=== PATIENT | female | born 1945 | race Caucasian/White ===

== ENCOUNTER → 2018-06-05 02:26 | Outpatient (CLI) | payer MEDICARE, OTHER, SELFPAY ==
[2018-06-05 13:58] LABS: Hemoglobin A1C 6.8 % (4.5-6.2)
== END ==
PROVIDERS: PCP Family Medicine; Visit Provider Family Medicine
DX: E11.9 Type 2 diabetes mellitus without complications (principal)
CPT/HCPCS: 36415; 83036

== ENCOUNTER → 2018-06-19 01:36 | Outpatient (CLI) | payer MEDICARE, OTHER, SELFPAY ==
--- NOTE | 2018-06-19 11:44 | DI.REPORT_ITS ---
SYMPTOM/DIAGNOSIS: SCREENING, BREAST CANCER SCREENING, Z12.31 BILATERAL SCREENING MAMMOGRAMS: Mammograms were interpreted according to the usual protocol including computer analysis with CAD system, tomosynthesis and C view imaging. Comparison is made with exams from 2011 through 2016. The breasts are composed of scattered fibroglandular densities. There are no suspicious masses or suspicious microcalcifications. There has been no significant change. IMPRESSION: Category 1-B, negative mammogram. Routine screening is recommended. [facility] ASSESSMENT OF FINDINGS: Negative. Category 1. Patient will receive a letter notifying them of these results. BI-RADS category B. There are scattered areas of fibroglandular density.
== END ==
PROVIDERS: PCP Family Medicine; Visit Provider Family Medicine
DX: Z12.31 Encounter for screening mammogram for malignant neoplasm of breast (principal)
CPT/HCPCS: 77063; 77067

== ENCOUNTER 2018-10-09 02:22 | Outpatient (CLI) | payer MEDICARE, SELFPAY ==
[2018-10-09 12:10] LABS: Hemoglobin A1C 6.9 % (4.5-6.2)
== END 2018-10-09 02:42 ==
PROVIDERS: PCP Family Medicine; Visit Provider Family Medicine
DX: E11.9 Type 2 diabetes mellitus without complications (principal)
CPT/HCPCS: 36415; 83036

== ENCOUNTER 2019-01-12 09:36 | Outpatient (CLI) | payer MEDICARE, OTHER, SELFPAY ==
[2019-01-12 10:33] LABS: Hemoglobin A1C 7.1 % (4.5-6.2)
== END 2019-01-12 09:56 ==
PROVIDERS: PCP Family Medicine; Visit Provider Family Medicine
DX: E11.9 Type 2 diabetes mellitus without complications (principal)
CPT/HCPCS: 36415; 83036

== ENCOUNTER 2019-04-15 02:12 | Outpatient (CLI) | payer MEDICARE, OTHER, SELFPAY ==
[2019-04-15 10:33] LABS: Potassium 4.4 mmol/L (3.5-5.1)
[2019-04-15 11:39] LABS: Hemoglobin A1C 7.1 % (4.5-6.2)
== END 2019-04-15 02:32 ==
PROVIDERS: PCP Family Medicine; Visit Provider Family Medicine
DX: E11.9 Type 2 diabetes mellitus without complications (principal); I10 Essential (primary) hypertension
CPT/HCPCS: 36415; 82565; 83036; 84132

== ENCOUNTER 2019-08-07 13:57 | Outpatient (CLI) | payer MEDICARE, SELFPAY ==
--- NOTE | 2019-08-07 14:06 | DI.RAD_ITS ---
EXAM: XR LUMBAR SPINE COMPLETE INDICATION: back paiN,M54.9. COMPARISON: No exams were available for comparison TECHNIQUE: 2D digital imaging was performed. FINDINGS: Gallstones are noted. There is a moderate levoscoliosis. There has been previous laminectomy at L 3 and L 4. No compression fractures are seen. There is severe narrowing of the L2-3, L4-5 and L5-S1 disc spaces. Mild to moderate narrowing is seen of the disc spaces of the remaining levels. There i s calcification in the aorta. Degenerative changes are also seen involving the SI joints. IMPRESSION: Postsurgical and degenerative changes. Gallstones.
--- NOTE | 2019-08-07 14:12 | DI.RAD_ITS ---
EXAM: XR CERVICAL SPINE COMP 4-5V INDICATION: neckpain,CERVICAL MYELOPATHY,G95.9. COMPARISON: No exams were available for comparison TECHNIQUE: 2D digital imaging was performed. FINDINGS: There is narrowing of the C4-5 through C6-7 disc spaces with endplate osteophyte formation. There are also facet degenerative changes. The degenerative changes combine to produce neural foraminal narro wing on the left at C 3-4 through C 6. Carotid artery calcifications are incidentally noted. IMPRESSION: Degenerative changes causing left neural foraminal narrowing.
--- NOTE | 2019-08-07 14:20 | DI.RAD_ITS ---
EXAM: XR KNEE LT 3V AP,LAT,[place] INDICATION: knee pain devan.M25.561,M25.562. COMPARISON: None TECHNIQUE: 2D digital imaging was performed. FINDINGS: The bones appear osteoporotic. The joint spaces are well maintained. There is mild spurring at the articular aspect of the patella as well as quadriceps insertion on the patella. Chondrocalcinosis i s seen. IMPRESSION: Osteoporosis and mild degenerative changes. Vascular calcifications are present.
--- NOTE | 2019-08-07 14:30 | DI.RAD_ITS ---
EXAM: XR KNEE RT 3V AP,LAT,DLALAS INDICATION: knee pain. COMPARISON: XR KNEE LT 3V AP,LAT,[place] from 08/07/2019 TECHNIQUE: 2D digital imaging was performed. FINDINGS: The bones appear osteoporotic. The joint spaces are well maintained. There is mild spurring at the a rticular margin. Chondrocalcinosis is seen. Vascular calcifications are present. IMPRESSION: Osteoporosis and mild changes.
--- NOTE | 2019-08-07 14:35 | DI.RAD_ITS ---
EXAM: XR HIP PELVIS ADULT BL INDICATION: HIP AND BACK PAIN, M25.552. COMPARISON: RT HIP COMPLETE AP PELVIS from 03/26/2017 TECHNIQUE: 2D digital imaging was performed. FINDINGS: When compared with the previous examination of 03/26/2017, progressive degenerative changes involving the left hip are demonstrated. There is articular sclerosis and subchondral cyst formation, the find ings consistent with AVM. Mild degenerative changes involving the right hip are identified.
== END 2019-08-07 14:17 ==
PROVIDERS: PCP Family Medicine; Visit Provider Family Medicine
DX: M54.5 Low back pain; M51.37 Other intervertebral disc degeneration, lumbosacral region; M53.3 Sacrococcygeal disorders, not elsewhere classified; M25.561 Pain in right knee; M25.562 Pain in left knee; M17.0 Bilateral primary osteoarthritis of knee; M54.2 Cervicalgia; M50.322 Other cervical disc degeneration at C5-C6 level; M99.51 Intervertebral disc stenosis of neural canal of cervical region; M81.0 Age-related osteoporosis without current pathological fracture; M25.551 Pain in right hip; M25.552 Pain in left hip; M16.0 Bilateral primary osteoarthritis of hip
CPT/HCPCS: 73521; 73562; 72050; 72110

== ENCOUNTER 2019-08-16 04:29 | Emergency (ER) | payer MEDICARE, SELFPAY ==
[2019-08-16] VITALS (23 sets, daily range): BP systolic 86–171; BP diastolic 42–72; PULSE 75–93; RESP 16–18; TEMP 36.7; O2SAT 84–99
--- NOTE | 2019-08-16 04:37 | ED.GENADUL_ITS ---
Discharge Plan Disposition Patient Disposition: HOME Condition: Stable Discharge Details Chief Complaint: Orthopedic Clinical Impression: Leg pain Primary Care Provider: Juan Perry ED Provider: Teddy Lira Home Meds and New Rx's Prescriptions: New nitrofurantoin monohyd/m-cryst [Macrobid] 100 mg capsule 100 mg PO BID Qty: 10 RF: 0 Continued hydrochlorothiazide 12.5 mg tablet 12.5 mg PO DAILY RF: 0 benazepril 20 mg tablet 20 mg PO DAILY Qty: 90 RF: 4 metformin [Glucophage] 500 mg tablet 500 mg PO BID Qty: 180 RF: 4 (DME) lancets [OneTouch Delica Lancets] 1 EACH misc 1 ea Intradermal DIRECTED Qty: 300 RF: 4 Travatan Z 2.5 ML drops 1 drp Ophthalmic DAILY RF: 0 (DME) pen needle, diabetic [BD Ultra-Fine Silvia Pen Needle] 32 gauge x 5/32 needle 1 ea Miscellaneous DAILY Qty: 100 RF: 4 (DME) OneTouch Ultra Test strip 1 ea Miscellaneous BID Qty: 180 RF: 4 Lantus Solostar U-100 Insulin 100 unit/mL (3 mL) insulin pen 9 - 14 unit subcut HS Qty: 1 RF: 11 meloxicam 15 mg tablet 15 mg PO DAILY Qty: 10 RF: 0 acetaminophen [Mapap Extra Strength] 500 MG tablet 500 mg PO bid prn RF: 0 Discharge Instructions Additional Instructions: follow up with your primary care provider as scheduled take the medicines for pain that you are prescribed if you have high fevers, difficulty breathing or persistent vomit or feel more ill return to the emergency department Discharge Data Discharge Date/Time-TO BE ENTERED AT DEPARTURE: 08/16/19 10:57 Medical Decision Making <Mark Chawla MD - Last Filed: 08/16/19 19:58> Patient with worsening of chronic pain. Her description of the pain distribution as well as sharp lancinating pain worse with movement is highly suggestive of an L2 radiculopathy. She appears to be neurologically intact and is limited only due to pain. There is no bladder or bowel symptoms. She has had LS-spine, hips, knee x-rays. I have reviewed the reports. These show significant degenerative change but no fractures. No repeat imaging tonight as there is no no trauma or falls. Has appointment to see orthopedics next week. Will attempt pain management with Lidoderm and gabapentin. May need short course of [place] to get through the weekend to see Ortho next week. 07:00 - Patient continues to complain of pain and is now complaining of pain in the same distribution even without movement. She has had Vicodin in addition to the lidoderm and gabapentin. She is afraid to go home. I have made it clear to her that her expectation of having no pain would be unreasonable. She just wants to be comfortable to be able to sleep. I still do not believe further x- rays are warranted. Probably needs an MRI at some point to evaluate the lumbar spine. She does not have evidence of cauda equina requiring emergent MRI. Laboratory studies will not add anything to her evaluation. I will have case management and physical therapy see to try to come up with a disposition plan. Medical Records Medical records reviewed: Yes I reviewed the patient's medical records. <Teddy Lira MD - Last Filed: 08/16/19 09:49> CM and Pt saw patient and she feels comfortable going home. with home PT and OT as she has hx of falls and is homebound and uses a walker. She did have some nitrites on her urine so start antibiotics for this. Return precautions given HPI <Makr Chawla MD - Last Filed: 08/16/19 19:58> General Mode of arrival: EMS . Date/Time Provider Initiated Documentation: 08/16/19 04:32 . Limitations to Documentation: no limitations . Information obtained by: patient, RN notes reviewed and old records reviewed . HPI Narrative: Patient presents to ED by ambulance for evaluation of increasing left leg pain. Patient has been having increasing pain and difficulty ambulating for weeks. She has been seen by primary care and referred to orthopedics. She had imaging of spine, hips and knees done last week. There has been no new fall or trauma since those images were done. She describes pain radiating around from the back across the lateral hip into the anterior thigh down to the medial knee. She has heaviness distally in both legs from the knee down and this has been chronic and attributed to diabetic neuropathy. She has had back and cervical spine surgery. Bending over or flexing at the hip makes the pain worse. She has difficulty ambulating because of pain. She takes a gram of Tylenol every 6 hours, has been tried on steroids, currently on meloxicam. Ambulates with a walker but this morning because of the pain has been afraid to ambulate for fear of falling. There is no rash. There is no bladder or bowel incontinence. There is no new numbness or change in sensation other than the chronic changes bilaterally knees down. Related Data Home Medications Medication Instructions Recorded Confirmed lancets [OneTouch Delica Lancets] #300 ea 04/11/13 08/07/19 Travatan Z 1 drp OPHTHALMIC DAILY drp 03/31/15 08/16/19 acetaminophen [Mapap Extra 500 mg PO bid prn 03/26/17 08/16/19 Strength] pen needle, diabetic 32 gauge x #100 each 10/09/18 08/07/19 benazepril 20 mg tablet 20 mg PO DAILY #90 tab-cap 10/18/18 08/16/19 metformin 500 mg tablet 500 mg PO BID #180 tab-cap 10/18/18 08/16/19 blood sugar diagnostic #180 strip 12/15/18 08/07/19 insulin glargine 100 unit/mL (3 9 - 14 unit SUBCUT HS #1 ml 12/26/18 08/16/19 mL) subcutaneous pen hydrochlorothiazide 12.5 mg tablet 12.5 mg PO DAILY tab-cap 07/18/19 08/16/19 meloxicam 15 mg tablet 15 mg PO DAILY #10 tab 08/08/19 08/16/19 nitrofurantoin monohyd/m-cryst 100 mg PO BID #10 cap 08/16/19 [Macrobid] Previous Rx's Medication Instructions Recorded pen needle, diabetic 32 gauge x #100 each 10/09/18 benazepril 20 mg tablet 20 mg PO DAILY #90 tab-cap 10/18/18 metformin 500 mg tablet 500 mg PO BID #180 tab-cap 10/18/18 blood sugar diagnostic #180 strip 12/15/18 insulin glargine 100 unit/mL (3 9 - 14 unit SUBCUT HS #1 ml 12/26/18 mL) subcutaneous pen meloxicam 15 mg tablet 15 mg PO DAILY #10 tab 08/08/19 nitrofurantoin monohyd/m-cryst 100 mg PO BID #10 cap 08/16/19 [Macrobid] Allergies Allergy/AdvReac Type Severity Reaction Status Date / Time Tetanus Vaccines and Toxoid Allergy Severe RED Unverified 08/16/19 04:27 SWOLLEN FINGERS indomethacin AdvReac Severe INTOLERANT Unverified 08/16/19 04:27 Penicillins AdvReac Intermediate Skin Rash Unverified 08/16/19 09:36 amlodipine AdvReac Mild Dizziness/L Unverified 08/16/19 04:27 ightheade atorvastatin AdvReac Unknown MYALGIAS Unverified 08/16/19 04:27 General Stated Complaint: Orthopedic JAMIE: 3 Review of Systems <Mark Chawla MD - Last Filed: 08/16/19 19:58> Review of Systems Narrative: As documented in HPI otherwise negative as below. Const: no fever, chills, weakness Resp: no cough, SOB, pleuritic pain CV: no CP, diaphoresis, edema, syncope GI: no abdominal pain, nausea, vomiting, diarrhea Neuro: no headache, focal weakness, confusion PFSH <Mark Chawla MD - Last Filed: 08/16/19 19:58> Medical History Diabetes mellitus (Chronic 09/18/12) stable sugars Glaucoma (Chronic) OPTICAL EXPRESSIONS; 03/26/15 Hyperlipidemia (Chronic 09/18/12) intol to statin Hypertension (Chronic) stable Surgical History Biopsy of breast RIGHT Extraction of cataract 07/31/15; RIGHT EYE; DR. RIOS; 08/21/15 LEFT EYE; DR. RIOS Ligation of fallopian tube (~1975) Open Carpal Tunnel release 2004 S/P laminectomy (Chronic 09/14/16) C3-C7 Dr. Regalado 07/2016 L2-L5 Dr. Regalado 01/25/17 Family History Mother Personal history of malignant neoplasm liver Father , TRACTOR ACCIDENT at age 70. No problems noted. Sister Essential hypertension Diabetes Grandfather Personal history of malignant neoplasm Grandfather No problems noted. Grandmother Stroke Grandmother No problems noted. Social History Smoking/Tobacco Use Status: Never Alcohol Intake: never Drug use: Never Substance use type: does not use Household members: spouse current occupation: HOMEMAKER Duration: < 15 minutes/day Frequency: 5-6 times per week Do you feel safe at home: Yes Do you feel safe in your relationship?: Yes Exam <Mark Chawla MD - Last Filed: 08/16/19 19:58> Narrative Exam Narrative: Vitals: Afebrile. Hypertensive. Vitals otherwise normal. Const: Elderly female in NAD. HEENT: NC/AT. Normal facial exam. Poor dentition. Lungs: Normal respiratory effort. GI: Soft. NT/ND. No guarding or rebound. Back: Decreased ROM lumbar area. Neuro: A+O x 3. CN grossly in tact. Strength appears to be 5/5 but limited left proximal because of pain. Sensory in tact. Ext: No C/C/E. Limited ROM at hip due to pain. Skin: Warm and dry without rash. Course <Mark Chawla MD - Last Filed: 08/16/19 19:58> Vital Signs Vital signs: Vital Signs Temperature 98.1 F 08/16/19 04:20 Pulse 93 H 08/16/19 04:20 Respiratory Rate 16 08/16/19 04:20 Blood Pressure 171/72 H 08/16/19 04:20 Pulse Oximetry 99 08/16/19 04:20 Temperature 98.1 F 08/16/19 04:20 Temperature Source Skin 08/16/19 04:20 Pulse 93 H 08/16/19 04:20 Respiratory Rate 16 08/16/19 04:20 Respiratory Effort 08/16/19 04:27 Blood Pressure 171/72 H 08/16/19 04:20 Blood Pressure Position Supine 08/16/19 04:20 Pulse Oximetry 99 08/16/19 04:20 Oxygen Delivery Method Room Air 08/16/19 04:20 Oxygen Flow Rate 0 08/16/19 04:20 Pain Level 0 08/16/19 04:27 Sign Out <Mark Chawla MD - Last Filed: 08/16/19 19:58> Sign Out Data: Sign Out Comment: Pending PT and case management evaluation. Signed out to Dr. Lira. Last updated by Mark Chawla MD at 08/16/19 08:02
[2019-08-16] MEDS: Lidocaine 5% Patch 1 PATCH TP (05:01)
[2019-08-16] MEDS: Gabapentin 300 MG CAP PO (05:02)
[2019-08-16] MEDS: HYDROcodone 5/Acetaminophen 325 TAB PO (05:57)
--- NOTE | 2019-08-16 06:29 | NUR.NOTE ---
Nursing Note:Pt requesting to see this nurse, upon entering the room pt is crying and states that her left leg is throbbing from the knee up to her hip, states that the pain is a 7/10 at rest. Physician notified.
--- NOTE | 2019-08-16 08:47 | NUR.NOTE ---
Nursing Note: pt at bedside to ambulate pt.
--- NOTE | 2019-08-16 08:54 | NUR.NOTE ---
Nursing Note: pt has orthostatic hypotention and is dizzy and nauseated when standing. unable to tolerate PT challenge. pts ideal situation is that she wants to go home. pt has a walker and bedside commode at home.
--- NOTE | 2019-08-16 08:55 | NUR.NOTE ---
Nursing Note: offered pt breakfast but declines. pt drinking a glass of milk.
--- NOTE | 2019-08-16 08:59 | NUR.NOTE ---
Nursing Note: foul odorous urine and cloudy. md notified and urine sample sent to lab.
--- NOTE | 2019-08-16 09:01 | NUR.NOTE ---
Nursing Note: pt able to transfer from commode back to stretcher with minimal assistance and able to get her legs back into bed independently.
[2019-08-16 09:14] LABS: Bilirubin Negative (Negative); Blood Small (Negative); Clarity Cloudy (Clear); Glucose Negative (Negative); Ketones Negative (Negative); Leukocyte Esterase Moderate (Negative); Nitrite Positive (Negative); Urobilinogen 0.2 EU/dL (Up TO 0.2); pH 5.5 (5-8)
[2019-08-16 09:29] LABS: Bacteria Many HPF (Negative); C & S Indicated? Yes; Casts Negative LPF (Negative); Crystals Negative HPF (Negative); Epithelial Cells Few HPF (Negative); Mucus Negative (Negative); RBC 0-2 (0-2); WBC >50 HPF (0-5)
[2019-08-16] MEDS: MacroBID 100 MG CAP PO (09:36)
--- NOTE | 2019-08-16 09:43 | IN_ITS ---
Date of service: 08/16/19 Time of Service: 08:04 PT Notes Inpatient Physical Therapy Evaluation Date: 08/16/2019 Referring Doctor: Mark Chawla MD PT Orders: PT CONSULT: Safety Consult for D/C Precautions: Fall. Standard. Activity as tolerated. Patient Profile/Admitting Diagnosis: Patient is a 74-year-old female with past medical history significant for Diabetes Meliitus with diabetic neuropathy and S/P Lumbar decompression with cervical (C3-C7) Laminectomy in 07/2016 and with Lumbar laminectomy in 01/25/2019. She presented to the ED this morning with complaints of increasing left leg pain in the hips and low back. PMHX: Medical History Diabetes mellitus (Chronic 09/18/12) stable sugars Glaucoma (Chronic) OPTICAL EXPRESSIONS; 03/26/15 Hyperlipidemia (Chronic 09/18/12) intol to statin Hypertension (Chronic) stable Surgical History Biopsy of breast RIGHT Extraction of cataract 07/31/15; RIGHT EYE; DR. RIOS; 08/21/15 LEFT EYE; DR. RIOS Ligation of fallopian tube (~1975) Open Carpal Tunnel release 2004 S/P laminectomy (Chronic 09/14/16) C3-C7 Dr. Regalado 07/2016 L2-L5 Dr. Regalado 01/25/17 Social History/Home Situation: Patient lives in a one-story home with her . There is a ramp to enter. Equipment Owned/DME: [employer]. Bedside commode. Subjective: Patient complains of severe pain in the hips and low back. She also complains of dizziness and nausea, and attributes it to the administration of Gabapentin, and Vicodin on an empty stomach. Objective: General Observation: Patient is seen laying supine in bed. She exhibits pallor, and her voice is softened, near whispering. Mental Status: Alert and oriented x 4 Pain: Patient did not quantify pain but exhibited rigid guarding. Vital Signs: 86/94 mmHg in standing ROM: Right Lower Extremity: Hip flexion 100 degrees. Hip abduction WFL. Knee flexion WFL. Ankle dorsiflexion WFL. Ankle plantarflexion WFL. Left Lower Extremity: Hip flexion WFL. Hip abduction WFL. Knee flexion WFL. Ankle dorsiflexion WFL. Ankle plantarflexion WFL. Strength: Lower extremity strength was 3+ globally but may be attributed to muscle guarding. Bed Mobility/Transfers: Rolling Independent Supine to sit Independent Sit to supine SBA Sit to stand SBA Stand to sit SBA Bed to chair Not assessed due to compaints of severe dizziness and instability Chair to bed Not assessed due to compaints of severe dizziness and instability Gait: Patient was not able to ambulate due to pain, dizziness, and nausea. Balance: Static Sitting: Normal Dynamic Sitting: Good Static Standing: Fair Dynamic Standing: Poor Special Tests: Mobility Limitations Standardized Measure [facility] AM-PAC 6 clicks Basic Mobility Inpatient Short Form: Raw Score: 18 CMS Score: 46% 4-stage Balance Test: Unable to maintain tandem stance and one-legged stance increased fall risk. SLR produced 60 degrees on the left and about 30 degrees on the right. Yuri's/IVON Test caused pain the hip area and testing on the left was not able to be done as patient was in significant muscle guarding. Informed Consent/Education: Patient instructed in purpose of PT consult and plan of care. Assessment: Patient is a 74 year old female admitted to the emergency department with complains of pain in her low back and hips. She appeared very weak, and fatigued. She exhibited rigid muscle guarding in both lower extremities. She complained of dizziness and nausea, and was hypotensive after sitting up. She was only able to complete two out of four stages of the 4-stage balance test, categorizing her as a fall-risk. She lives with her , and ambulates with a FWW. She said she has a bedside commode that she uses. She was unable to dorsiflex or left ankle. Her prognosis is poor and has a high fall risk. Positive SLR test and positive R Yuri/IVON test signifies possible underlying hip/SI pathology. Patient presents with clinical signs and symptoms consistent with current/admitting diagnoses that have resulted to mobility limitations, gait instability, generalized weakness, and impairment of motor control as demonstrated by the following impairment level findings: 1. Decreased strength to B LE major muscle groups 2. Impaired sitting/standing balance 3. Impaired activity tolerance 4. Limitation of joint range of motion in hip flexion, knee extension, ankle dorsiflexion on R ankle Impairments are contributing to the following functional limitations: 1. Dependent bed mobility skills 2. Increased dependence with transfers 3. Inability to safely ambulate without assistive device and physical assistance 4. Increase completion time for mobility ADL performance 5. Increased fall risk 6. Inability to negotiate steps alone safely Patient is assessed as a [id number] moderate complexity based on the following: History: Patient presenting with hip and low back pain; S/P Laminectomy and Type II DM Examination: Demonstrable impairment in strength, balance, and range of motion with underlying impairments and functional limitations as documented above Presentation: Evolving Decision Makin Moderate complexity DISCHARGE RECOMMENDATIONS: Recommendations regarding placement in a shelter facility for pain management and functional mobility progression were given to patient but patient expressed that she would rather go home. An option for sending HH PT in was also suggested to which patient was amenable. Patient has a bedside commode and a front-wheeled walker at home. may also able to provide minimal assistance after HH PT education/training is given. TREATMENT CODE/TIME: 27751 x 41 minutes beginning at 8:04 PM. Thank you very much for this referral. Aryan Sawant [facility] With supervision of: Opal Rivera PT, DPT, CLT [facility]
--- NOTE | 2019-08-16 10:22 | PDOC.ERCMPRO ---
- If Service Date Differs Date of service: 08/16/19 Time of Service: 10:22 Care Management Progress Note S/O: CM met with patient at the bedside Ana and her Spouse are present during the assessment. Ana states she has a large amount of discomfort. She states she has had multiple spine surgeries and has chronic joint discomfort and difficulty with movement. She uses a walker at home, she does not drive her spouse assists her with ADL's. Ana if afraid of falling due to limited movement. She states she has participated with PT in the past. She states she is falling more often this scares her she is not sure why the falls are happening more frequent. She states she takes 1000 mg of extra strength Tylenol four times a day and was started on Meloxicam by her provider. She states neither of them help her sleep or control the pain. She reports she only sleeps about an hour at a time due to discomfort. Her spouse is present she states he is supportive to her. She has been referred to Orthopedics and has an appointment on Tuesday of next week. CM did try and get her in sooner there are no appointments open. CM did review options for home care services Ana is willing to have home health PT, OT and DISTANCE EDUCATION COORDINATOR to assist with other resources that may be beneficial. Ana did have a PT evaluation in the ED with recommendations of home health PT and assist by her spouse at home with transfers. Ana has a walker at home and a bedside commode. CHRIS recommends a home safety evaluation by home health to reduce the risk of falls. CHRIS contacted [facility] and made the referral as well as faxed the orders. CHRIS reviewed the plan with provider and primary nurse as well as the family. Ana will be discharged home when she is medically ready from the ED, Spouse will transport her home. P: Home with new home health services, and follow up with orthopedics and pcp. CHRIS contacted [facility] at primary care and reviewed the plan she will follow up with the patient this week.
--- NOTE | 2019-08-16 10:56 | NUR.NOTE ---
Nursing Note: pt reports that she is feeling a little better and is less dizzy than what she was before. [id number]
== END 2019-08-16 10:57 | disposition home or self-care (01) ==
PROVIDERS: Emergency Provider Emergency Medicine; PCP Family Medicine
DX: M79.605 Pain in left leg (principal); G89.29 Other chronic pain; R26.2 Difficulty in walking, not elsewhere classified; I10 Essential (primary) hypertension; E11.40 Type 2 diabetes mellitus with diabetic neuropathy, unspecified; Z91.81 History of falling; Z79.4 Long term (current) use of insulin
CPT/HCPCS: 87077; 97162; 99283; 81003; 81015; 87086; 87186

== ENCOUNTER → 2019-08-22 09:25 | Outpatient (BNVA) | payer MEDICARE, SELFPAY | PROVIDERS: PCP Family Medicine; Referring Provider Family Medicine; Visit Provider Student in an Organized Health Care Education/Training Program | DX: E11.49 Type 2 diabetes mellitus with other diabetic neurological complication (principal); Z79.4 Long term (current) use of insulin; M16.12 Unilateral primary osteoarthritis, left hip; M41.50 Other secondary scoliosis, site unspecified; M43.16 Spondylolisthesis, lumbar region; M54.16 Radiculopathy, lumbar region; M48.02 Spinal stenosis, cervical region; M48.061 Spinal stenosis, lumbar region without neurogenic claudication | CPT/HCPCS: 99205; 99215 ==

== ENCOUNTER 2019-08-31 00:45 | Outpatient (CLI) | payer MEDICARE, SELFPAY ==
--- NOTE | 2019-08-31 13:35 | DI.MRI_ITS ---
EXAM: MR LUMBAR SPINE WO/W CLINICAL HISTORY: leg weakness/back pain M48.061 SPINAL STENOSIS, M43.16 SPONDYLOLISTHESIS. TECHNIQUE: Multiplanar multisequence MRI was performed. Pre and post gadolinium fat-suppressed T1 a xial and sagittal sequences were also performed. The exam is limited by patient motion. COMPARISON: MRI - LUMBAR SPINE W/WO CONT from 04/07/2017 XR LUMBAR SPINE COMPLETE from 08/07/2019 MR CERVICAL SPINE WO/W from 08/31/2019 FINDINGS: At T10-11 and T11-12, there are disc osteophytes projecting into the central canal causing effacement of the anterior CSF space. There may be mild impingement on the anterior aspect of the lower thorac ic cord. There is minimal disc bulging at T12-L1 and L1-2. At L2-3, there is loss of disc height, disc osteophytes and broad-based disc bulging as well as mild spondylolisthesis. There is moderate narrowing of the central canal, which appears stable. There is also severe neural foraminal narrowing. Laminectomy is noted at L3 through L5. Facet degenerative changes are seen throughout, contributing to neural foraminal narrowing. At L3-4, there is broad-based disc bulging and endplate osteophytes. There is severe bilateral neura l foraminal encroachment. There is no significant central canal stenosis. At L4-5, there is severe loss of disc height and broad-based disc osteophytes. There is severe bilateral neural foraminal louis rowing but no significant central canal stenosis. At L5-S1, there are endplate osteophytes, which are broad-based, eccentric toward the left which caus es severe left neural foraminal narrowing. There is mild central canal stenosis. No abnormal enhancing lesions are identified. IMPRESSION: Severe multilevel neural foraminal narrowing secondary to a combination of encroachment by disc osteo phytes and facet joints. No evidence of a new focal disc herniation. Moderate central canal stenosi s is noted at L2-3 secondary to a combination of degenerative changes.
[2019-08-31] MEDS: Normal Saline Flush 10 ML SYR IVP (15:00)
[2019-08-31] MEDS: Gadoterate meglumine 20 ML VIAL 10 ML IVP (15:05)
--- NOTE | 2019-08-31 15:10 | DI.MRI_ITS ---
EXAM: MR CERVICAL SPINE WO/W CLINICAL HISTORY: leg weakness M48.02 SPINAL STENOSIS, CERVICAL REGION. TECHNIQUE: Multiplanar multisequence MRI was performed. Post gadolinium T1 axial and sagittal seque nces were also performed. COMPARISON: MRI - CERVICAL SPINE WO CONT from 07/09/2016 FINDINGS: The exam is limited by patient motion. Patient is now status post laminectomy from C4-C6. C2-3 leve l is unremarkable. There is no change in the appearance of a left paracentral disc protrusion at C3-4 . There is effacement of the anterior CSF space. The C4-5 disc shows mild osteophytes mainly projecti ng anteriorly. Previously noted osteophytes from C4-5 through C6-7 have been resected. There is no ce ntral canal stenosis at these levels. No abnormal enhancing lesions are seen. The cord signal is diff icult to evaluate due to motion. IMPRESSION: Left paracentral disc protrusion at C3-4 causes some effacement of the anterior CSF space. The remain ing levels show improvement postsurgically.
== END 2019-08-31 01:05 ==
PROVIDERS: PCP Family Medicine; Visit Provider Family Medicine
DX: M54.2 Cervicalgia (principal); M48.02 Spinal stenosis, cervical region; M62.81 Muscle weakness (generalized); M50.220 Other cervical disc displacement, mid-cervical region, unspecified level; M54.5 Low back pain; M51.26 Other intervertebral disc displacement, lumbar region; M43.16 Spondylolisthesis, lumbar region; M48.061 Spinal stenosis, lumbar region without neurogenic claudication
CPT/HCPCS: 72158; 72156

== ENCOUNTER 2019-09-02 09:44 | Emergency (ER) | payer MEDICARE, SELFPAY ==
[2019-09-02] VITALS (31 sets, daily range): BP systolic 142–150; BP diastolic 72–74; PULSE 87–104; RESP 11–22; TEMP 36.7; O2SAT 98–100
--- NOTE | 2019-09-02 09:47 | W.ED.GENAD ---
Discharge Plan Disposition Patient Disposition: HOME Condition: Fair Discharge Details Chief Complaint: Dizzy/Sync Clinical Impression: Dizziness, Hypomagnesemia, Chronic pain Primary Care Provider: Juan Perry ED Provider: Sylvia Gonzales Home Meds and New Rx's Prescriptions: Continued benazepril 20 mg tablet 20 mg PO DAILY Qty: 90 RF: 4 metformin [Glucophage] 500 mg tablet 500 mg PO BID Qty: 180 RF: 4 (DME) lancets [OneTouch Delica Lancets] 1 EACH misc 1 ea Intradermal DIRECTED Qty: 300 RF: 4 Travatan Z 2.5 ML drops 1 drp Ophthalmic DAILY RF: 0 (DME) pen needle, diabetic [BD Ultra-Fine Silvia Pen Needle] 32 gauge x 5/32 needle 1 ea Miscellaneous DAILY Qty: 100 RF: 4 (DME) OneTouch Ultra Test strip 1 ea Miscellaneous BID Qty: 180 RF: 4 olopatadine 0.1 % Drops 1 drp ophthalmic (eye) BID RF: 0 Lantus Solostar U-100 Insulin 100 unit/mL (3 mL) insulin pen 13 unit subcut HS RF: 0 acetaminophen [Mapap Extra Strength] 500 MG tablet 500 mg PO bid prn RF: 0 Discharge Instructions Instructions: Hypomagnesemia (ED), Dizziness (ED) Additional Instructions: Encourage hydration. Please continue with pain management as previously directed by her primary care. Please continue with your physical therapy. Please continue to pursue care with spine clinic. Your dizziness symptoms are most consistent with vertigo at this point. If you have any recurrence of your symptoms further new/worsening symptoms please seek care urgently once again. Your magnesium was low today, this is been replenished through your IV. Please follow-up with Dr. Perry tomorrow to discuss follow-up appointment promptly and to discuss your chronic issues. Please follow-up with service on aging. Please reach out to resources given regarding in-home care. Palliative care referral has been sent. Return with any new or worsening symptoms. Referrals: Isidra Rodriguez MD [ [facility] STAFF PHYSICIAN] - Juan Perry [Primary Care Provider] - Discharge Data Discharge Date/Time-TO BE ENTERED AT DEPARTURE: 09/02/19 14:47 Medical Decision Making Patient presents today with c/c of sudden onset of dizziness while she was seated in her wheelchair. Symptoms started approximately 30 minutes prior to arrival. EMS reports that her symptoms completely resolved as soon as she was supine. Patient currently asymptomatic. Denies BAIG, visual changes, N/V/D. No fevers/chills. Endorses chronic progressive weakness and unintentional weight loss. Patient reports she never had episodes of dizziness like this historically. Describes this as feeling like she was swaying in her wheelchair. Did not fall. No loss consciousness. On exam, patient appears chronically ill. No evidence of head trauma. Eyes slightly pink and bloodshot. patient appears fatigued. No nystagmus is noted on exam. Limited neuro exam is intact. Unable to fully assess patient's ability to move her lower extremity secondary to her severe left hip pain, back pain. She has peripheral neuropathy but reports that the sensation she is feeling in her feet is her baseline without any acute changes. She has good distal pulses in all extremities. Normal cardiac exam, lungs are clear. Abdomen is benign. She appears dehydrated. Patients sensation of unusual movement is more consistent with vertigo or inner ear dysfunction than cardiac etiology. No lightheadedness. No CP or palpitations. However, unable ot assess for source to confirm vertigo as she is not currently symptomatic. Attempted to recreate her symptoms by putting her in a more upright position, patient remained asymptomatic. Plan for CT head, labs, ecg. Labs reviewed. Mild anemia witih Hgb osf 11.6. She has not had this checked in 2 years, had been normal historically. She denies any hematuria, easy bruising, melena or hematochezia. No other significant abnormalities. Troponin 0.05, TSH normal. UA pending. Tick and Lyme panel pending. While this is unlikely given the patient's low likelihood to exposure, this may account for a number of her symptoms. Will replenish the patient's magnesium. EKG was reviewed by Dr. Evans. Compared to previous in 2017. Significant time is a right bundle branch block. No acute ST changes noted. Patient will be undergoing a repeat troponin. CT reviewed by radiologist: FINDINGS: Brain: There is no evidence for acute intracranial hemorrhage. Cerebral volume loss noted. Scattered areas of decreased attenuation in the deep periventricular white matter consistent with small vessel ischemic change. Ventricles: Normal. No ventriculomegaly. Bones/joints: Unremarkable. No acute fracture. Sinuses: Visualized sinuses are unremarkable. No fluid levels. Mastoid air cells: Visualized mastoid air cells are well aerated. Orbits: Lacunar change right caudate nucleus, nonacute. Soft tissues: Unremarkable. IMPRESSION: Senescent changes noted. No acute intracranial abnormality. Repeat troponin <0.05. Discussed this with the patient. Patient description of the symptoms are more consistent with vertigo and cardiac etiology. However, patient is chronically ill and having a very difficult time with mobility. We did discuss disposition options in depth. Patient will prefer to be discharged home would not like admission at this time. I did consult with care management who came to discuss home care options with the patient and her family as well as pursuing assisted living as an outpatient. At this time, with the patient's insurance and her preferences, it sounds like hiring a recreation therapy aides teacher is most appropriate. I did put in a referral to palliative care. Patient has remained asymptomatic while here. We did discuss admission to continue to monitor her and she is declining. She does appear chronically ill and malnourished. I did discuss dietary changes that she could make and encouraged she continue with physical therapy. Advise close follow-up with primary care. She is given strict return precautions. All of her questions and concerns were addressed and she is in agreement this plan. HPI General Mode of arrival: EMS. Date/Time Provider Initiated Documentation: 09/02/19 10:04. Limitations to Documentation: no limitations. Information obtained by: patient, EMS and RN notes reviewed. HPI Narrative: Patient is a 74 year old female with hx of diabetic neuropathy, DM, hyperlipidemia, HTN, right leg weakness, complicated back history with multiple surgeries. She is brought in via EMS with c/c of dizziness that began suddenly while in her wheelchair. States that she felt like I was swaying. Has been bound to her wheelchair for the past few weeks associated with back pain and radiculopathy. No acute change in her back pain or leg pain. Has had progressive weakness over the past few weeks and reports progressive unintentional weight loss. Has lost 4 lb in the past 3 weeks. No recent illness. No fevers or chills. Underwent an MRI of her cervicle spine and lumbar spine 2 days ago. Has not yet received results. Denies CP, SOB. Currently fatigued and weak but no lightheadedness. Related Data Home Medications Medication Instructions Recorded Confirmed lancets [[facility] Lancets] #300 ea 04/11/13 08/22/19 Travatan Z 1 drp OPHTHALMIC DAILY drp 03/31/15 09/02/19 acetaminophen [Mapap Extra 500 mg PO bid prn 03/26/17 09/02/19 Strength] pen needle, diabetic 32 gauge x #100 each 10/09/18 08/22/19 benazepril 20 mg tablet 20 mg PO DAILY #90 tab-cap 10/18/18 09/02/19 metformin 500 mg tablet 500 mg PO BID #180 tab-cap 10/18/18 09/02/19 blood sugar diagnostic #180 strip 12/15/18 08/22/19 Lantus Solostar U-100 Insulin 13 unit SUBCUT HS 09/02/19 09/02/19 olopatadine 1 drp OPHTHALMIC (EYE) BID 09/02/19 09/02/19 Previous Rx's Medication Instructions Recorded pen needle, diabetic 32 gauge x #100 each 10/09/18 benazepril 20 mg tablet 20 mg PO DAILY #90 tab-cap 10/18/18 metformin 500 mg tablet 500 mg PO BID #180 tab-cap 10/18/18 blood sugar diagnostic #180 strip 12/15/18 Allergies Allergy/AdvReac Type Severity Reaction Status Date / Time Tetanus Vaccines and Toxoid Allergy Severe RED Unverified 09/02/19 11:38 SWOLLEN FINGERS indomethacin AdvReac Severe INTOLERANT Unverified 09/02/19 11:38 Penicillins AdvReac Intermediate Skin Rash Unverified 09/02/19 11:38 amlodipine AdvReac Mild Dizziness/L Unverified 09/02/19 11:38 ightheade atorvastatin AdvReac Unknown MYALGIAS Unverified 09/02/19 11:38 General JAMIE: 3 Review of Systems Constitutional Constitutional: Reports as per HPI, Denies chills, Reports fatigue (reports this is chronic, associates with uncontrolled pain), Denies fever(s), Denies headache(s), Denies lethargy and Denies poor appetite Eyes Eyes: Denies change in vision ENT Ears, Nose, Mouth, and Throat: Denies dizziness and Denies headache(s) Cardiovascular Cardiovascular: Reports as per HPI, Denies dyspnea and Denies dyspnea on exertion Respiratory Respiratory: Reports as per HPI, Denies chest congestion, Denies cough, Denies pain on inspiration, Denies pain with cough, Denies dyspnea, Denies dyspnea on exertion and Denies wheezing Gastrointestinal Gastrointestinal: Reports as per HPI, Denies abdominal pain, Denies diarrhea, Denies nausea and Denies vomiting Musculoskeletal Musculoskeletal: Reports as per HPI and Denies back pain Integumentary/Breasts Skin/Breast: Reports as per HPI and Denies rash Neurologic Neurologic: Reports as per HPI, Denies dizziness and Denies headache(s) Endocrine Endocrine: Reports fatigue (reports this is chronic, associates with uncontrolled pain) Allergic/Immunologic Allergic/Immunologic: Denies wheezing [facility] Medical History Diabetes mellitus (Chronic 09/18/12) stable sugars Glaucoma (Chronic) OPTICAL EXPRESSIONS; 03/26/15 Hyperlipidemia (Chronic 09/18/12) intol to statin Hypertension (Chronic) stable Spondylolisthesis of lumbar region (Acute) Surgical History Biopsy of breast RIGHT Extraction of cataract 07/31/15; RIGHT EYE; DR. RIOS; 08/21/15 LEFT EYE; DR. RIOS Ligation of fallopian tube (~1976) Open Carpal Tunnel release 2004 S/P laminectomy (Chronic 09/14/16) C3-C7 Dr. Regalado 07/2016 L2-L5 Dr. Regalado 01/25/17 Social History Smoking/Tobacco Use Status: Never Alcohol Intake: never Drug use: Never Substance use type: does not use Household members: spouse current occupation: HOMEMAKER Current gender identity: female Duration: < 15 minutes/day Frequency: 5-6 times per week Do you feel safe at home: Yes Do you feel safe in your relationship?: Yes Exam Const General: cooperative, comfortable, no acute distress, well developed and ill appearing chronically Nutritional Appearance: average body habitus and malnourished Orientation: alert, awake and oriented x3 HENMT Head: normal to inspection, no palpable skull fracture and normocephalic Ears: hearing grossly normal bilaterally and external ears normal General nose exam: external nose normal Face and sinus: normal facial exam and face symmetric Mouth: mucous membranes dry (patient appears dry) Throat: posterior oropharynx normal Eyes Visual [place]: normal visual [place] by confrontation Alignment and Position: alignment normal and position normal Periorbital: periorbital findings normal Eyelids: eyelids normal Conjunctivae: conjunctivae normal Sclera: sclerae normal Cornea: corneas normal Pupils: PERRL EOM: EOM intact bilaterally (no nystagmus noted) Chest Chest: normal inspection of the chest, normal palpation of entire chest wall and no crepitus Resp Effort & Inspection: normal respiratory effort, able to speak in complete sentences and no respiratory distress Auscultation: clear to auscultation bilaterally, no rales, no rhonchi and no wheezes Cardio Rate: regular rate Rhythm: regular rhythm Heart Sounds: S1 normal and S2 normal GI Inspection: normal to inspection, no edema and non-distended Palpation: soft, no hepatosplenomegaly, not firm, no guarding, not rigid and nontender Auscultation: normal bowel sounds Skin General skin exam: no rashes or lesions noted Trauma: no lacerations or abrasions Neuro General: alert, awake, oriented x3 and no meningeal signs Cranial Nerves: CN's II-XI intact bilaterally Cognition: normal cognition Speech: speech normal Gait: gait abnormal (patient wheelchair bound at baseline) Motor: no pronator drift, no fasciculations and strength abnormal (BLE, baseline for the patient per her report, able ot move but has pain) Sensory Exam: sensory deficits noted (chronic paresthesias in bilateral feet. No saddle paresthesias) Extrem General: normal to inspection, normal capillary refill, no pedal edema, no calf tenderness and normal gait Psych Appearance: grossly normal and well kempt Mental Status: mental status grossly normal Speech and Movement: speech and movement normal
--- NOTE | 2019-09-02 10:04 | DI.CT_ITS ---
EXAM: CT HEAD WO CLINICAL HISTORY: dizziness TECHNIQUE: Noncontrast. COMPARISON: No exams were available for comparison FINDINGS: No intracranial hemorrhage, mass or acute infarct is seen. There is no evidence of skull fracture o r sinus opacification. The mastoid air cells also appear clear. The orbits are unremarkable. There is minimal atrophy and white matter changes of microvascular disease. There an old lacunar infarct in the right caudate head. 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 No acute abnormality.
[2019-09-02 10:20] LABS: Lactate 1.6 mmol/L (0.6-1.4)
[2019-09-02 10:21] LABS: Abs Immature Grans 0.02 k/cumm (0.0-0.09); Absolute Basophil Count 0.05 k/cumm (0.0-0.2); Absolute Eosinophil Count 0.08 k/cumm (0.0-0.7); Absolute Monocyte Count 0.59 k/cumm (0.11-0.7); Absolute Neutrophil Count 5.41 k/cumm (1.2-6.7); Basophils % 0.7; Eosinophils % 1.1; HCT 34.4 % (36.0-46.0); HGB 11.6 g/dL (12.0-15.5); Immature Grans % 0.3; Lymphocytes % 17.4; Mean Corp. HGB Concentration 33.7 g/dL (32.0-36.0); Mean Platelet Volume 9.6 fL (8.0-11.0); Monocytes % 7.9; Neutrophils % 72.6; Platelet Count 316 x1000/uL (130-400); RBC 3.74 m/cumm (4.00-5.20); RBC Distribution Width 12.7 % (11.7-14.6); White Blood Cell Count 7.45 k/cumm (4.4-10.8)
[2019-09-02 10:48] LABS: ALT 20 U/L (14-59); AST 16 U/L (15-37); Albumin 3.2 g/dL (3.4-5.0); Alkaline Phosphatase 88 U/L (46-116); Anion Gap 11.5 mmol/L (3-11); BUN 16 mg/dL (7-18); Bilirubin, Total 0.5 mg/dL (0.2-1.0); CO2 27.5 mmol/L (21.0-32.0); Calcium 9.3 mg/dL (8.5-10.1); Chloride 103 mmol/L (98-107); Glucose 114 mg/dL (70-100); Magnesium 1.3 mg/dL (1.8-2.4); Potassium 4.1 mmol/L (3.5-5.1); Sodium 142 mmol/L (136-145); TSH 1.16 uIU/mL (0.36-3.74); Total Protein 7.4 g/dL (6.4-8.2)
[2019-09-02 10:51] LABS: Troponin I < 0.05 ng/mL (0.00-0.06)
[2019-09-02] MEDS: Normal Saline 1,000 ML 150 ML IV (10:59)
[2019-09-02 11:04] LABS: Bilirubin Negative (Negative); Blood Trace-lysed (Negative); Clarity Clear (Clear); Glucose Negative (Negative); Ketones Negative (Negative); Leukocyte Esterase Negative (Negative); Nitrite Negative (Negative); Specific Gravity 1.015 (1.005-1.025); Urobilinogen 0.2 EU/dL (Up TO 0.2); pH 7.5 (5-8)
--- NOTE | 2019-09-02 11:15 | DI.VRAD_ITS ---
PROCEDURE INFORMATION: Exam: CT Head Without Contrast Exam date and time: 09/02/2019 10:05 AM Clinical history: 74 years old, female; Dizziness TECHNIQUE: Imaging protocol: Computed tomography of the head without contrast. COMPARISON: No relevant prior studies available. FINDINGS: Brain: There is no evidence for acute intracranial hemorrhage. Cerebral volume loss noted. Scattered areas of decreased attenuation in the deep periventricular white matter consistent with small vessel ischemic change. Ventricles: Normal. No ventriculomegaly. Bones/joints: Unremarkable. No acute fracture. Sinuses: Visualized sinuses are unremarkable. No fluid levels. Mastoid air cells: Visualized mastoid air cells are well aerated. Orbits: Lacunar change right caudate nucleus, nonacute. Soft tissues: Unremarkable. IMPRESSION: Senescent changes noted. No acute intracranial abnormality. COMMENT: Preliminary interpretation is based on receipt of 948 image(s). A final report will be issued subsequently. Dictated and Authenticated by: Gabby Soliz MD. Ordering:KEREN Ward MD
[2019-09-02 11:17] LABS: Bacteria Rare HPF (Negative); C & S Indicated? No/Sq. Contamination; Casts Negative LPF (Negative); Crystals Negative HPF (Negative); Epithelial Cells Moderate HPF (Negative); Mucus Negative (Negative); Other Cells Few Renal (Negative); RBC 0-2 (0-2); WBC 0-2 HPF (0-5)
[2019-09-02] MEDS: Normal Saline Flush 10 ML SYR IVP (11:29)
[2019-09-02] MEDS: MAGNESIUM SULFATE 1 GM/100 ML BAG IVPB (11:29)
[2019-09-02 13:37] LABS: Troponin I < 0.05 ng/mL (0.00-0.06)
[2019-09-02] MEDS: Acetaminophen 500 MG TAB PO (14:16)
--- NOTE | 2019-09-02 14:17 | CMPROGNOTE_ITS ---
- If Service Date Differs Date of service: 09/02/19 Time of Service: 14:17 Care Management Progress Note CM was paged by the ED to visit with Ana while she was being evaluated. Ana kept her eyes closed during most of the conversation with CM, but she was able to communicate. She reported that she recently had an MRI and is waiting to hear from the specialist about possible back surgery. She stated that she is having some trouble moving around at home, specifically getting in and out of bed. She reported that her helps her when he can, but that it is hard for him too. Ana is currently receiving HH PT/OT. CM faxed referral to resume services with the addition of [employer]PUTER [employer] DESIGN [employer]. CM also faxed referral to [facility] for options counseling. CM discussed the option of private caregivers in the home to provide additional support, which Ana and her family were agreeable to. CM provided them with information on [facility] services. Provider was updated on the plan.
[2019-09-04 10:20] LABS: Lyme Ab w Rflx to Lyme Confirm Negative
[2019-09-05 23:21] LABS: Anaplasma phagocytophilum Negative (Negative); B. miyamotoi PCR Negative (Negative); Babesia divergens/MO-1 Negative (Negative); Babesia duncani Negative (Negative); Babesia microti Negative (Negative); Ehrlichia chaffeensis Negative (Negative); Ehrlichia ewingii/canis Negative (Negative); Ehrlichia muris eauclairensis Negative (Negative)
== END 2019-09-02 14:47 | disposition home or self-care (01) ==
PROVIDERS: Emergency Provider Physician Assistant; PCP Family Medicine
DX: R42 Dizziness and giddiness (principal); E83.42 Hypomagnesemia; M25.552 Pain in left hip; M54.9 Dorsalgia, unspecified; G89.29 Other chronic pain; E11.42 Type 2 diabetes mellitus with diabetic polyneuropathy; Z79.4 Long term (current) use of insulin; I10 Essential (primary) hypertension
CPT/HCPCS: 80053; 87798; 93005; 96361; 96365; 99285; 70450; 81003; 81015; 83605; 83735; 84443; 84484; 85025; 86618; 93010; J3475

== ENCOUNTER 2019-10-22 01:26 | Outpatient (CLI) | payer MEDICARE, SELFPAY ==
[2019-10-22 10:01] LABS: Magnesium 1.6 mg/dL (1.8-2.4)
[2019-10-23 09:34] LABS: Hemoglobin A1C 6.4 % (3.8-5.6)
== END 2019-10-22 01:46 ==
PROVIDERS: PCP Family Medicine; Visit Provider Family Medicine
DX: E11.9 Type 2 diabetes mellitus without complications (principal)
CPT/HCPCS: 36415; 83036; 83735

== ENCOUNTER 2020-04-17 04:36 | Outpatient (CLI) | payer MEDICARE, SELFPAY ==
[2020-04-17 11:34] LABS: Magnesium 1.5 mg/dL (1.8-2.4)
[2020-04-17 12:02] LABS: Hemoglobin A1C 6.4 % (3.8-5.6)
== END 2020-04-17 04:56 ==
PROVIDERS: PCP Family Medicine; Visit Provider Family Medicine
DX: R73.9 Hyperglycemia, unspecified (principal); E83.42 Hypomagnesemia
CPT/HCPCS: 36415; 83036; 83735

== ENCOUNTER 2020-07-21 01:56 | Outpatient (CLI) | payer MEDICARE, SELFPAY ==
[2020-07-21 12:28] LABS: Hemoglobin A1C 6.5 % (<5.7)
== END 2020-07-21 02:16 ==
PROVIDERS: PCP Family Medicine; Visit Provider Family Medicine
DX: R73.9 Hyperglycemia, unspecified (principal)
CPT/HCPCS: 36415; 83036

== ENCOUNTER 2020-10-20 02:17 | Outpatient (CLI) | payer MEDICARE, SELFPAY ==
[2020-10-20 11:57] LABS: Hemoglobin A1C 6.8 % (<5.7)
== END 2020-10-20 02:37 ==
PROVIDERS: PCP Family Medicine; Visit Provider Family Medicine
DX: R73.9 Hyperglycemia, unspecified (principal)
CPT/HCPCS: 36415; 83036

== ENCOUNTER 2021-04-20 03:09 | Outpatient (CLI) | payer MEDICARE, SELFPAY ==
[2021-04-20 11:24] LABS: Hemoglobin A1C 6.9 % (<5.7)
[2021-04-20 12:36] LABS: CREATININE 0.7 mg/dL (0.55-1.02); Potassium 4.8 mmol/L (3.5-5.1)
== END 2021-04-20 03:10 | disposition home or self-care (01) ==
LOC: LBO 03:09
PROVIDERS: PCP Family Medicine; Visit Provider Family Medicine
DX: I10 Essential (primary) hypertension (principal); R73.9 Hyperglycemia, unspecified
CPT/HCPCS: 36415; 82565; 83036; 84132

== ENCOUNTER 2021-07-22 15:20 | Outpatient (CLI) | payer MEDICARE, SELFPAY ==
[2021-07-22 11:41] LABS: Hemoglobin A1C 6.9 % (<5.7)
== END 2021-07-22 15:21 | disposition home or self-care (01) ==
LOC: LBO 15:23
PROVIDERS: PCP Family Medicine; Visit Provider Family Medicine
DX: R73.9 Hyperglycemia, unspecified (principal)
CPT/HCPCS: 36415; 83036

== ENCOUNTER → 2021-08-18 08:08 | Outpatient (BNVA) | payer MEDICARE, SELFPAY | PROVIDERS: PCP Family Medicine; Referring Provider Family Medicine; Visit Provider Psychiatry & Neurology Neurology | DX: R25.2 Cramp and spasm (principal); M48.02 Spinal stenosis, cervical region; M48.061 Spinal stenosis, lumbar region without neurogenic claudication; M21.371 Foot drop, right foot; R29.898 Other symptoms and signs involving the musculoskeletal system | CPT/HCPCS: 99215 ==

== ENCOUNTER 2021-10-22 03:29 | Outpatient (CLI) | payer MEDICARE, SELFPAY ==
[2021-10-22 12:50] LABS: Hemoglobin A1C 7.1 % (<5.7)
== END 2021-10-22 03:30 | disposition home or self-care (01) ==
PROVIDERS: PCP Family Medicine; Visit Provider Family Medicine
DX: R73.9 Hyperglycemia, unspecified (principal)
CPT/HCPCS: 36415; 83036

== ENCOUNTER 2022-01-21 03:24 | Outpatient (CLI) | payer MEDICARE, SELFPAY ==
[2022-01-21 10:47] LABS: HCT 38.7 % (36.0-46.0); HGB 12.7 g/dL (11.2-15.7); MCH 30.2 pg (27.0-33.0); MCHC 32.8 % (32.0-36.0); MCV 91.9 fL (80-95); Platelet Count 219 10^3/uL (130-400); RBC 4.21 10^6/uL (3.93-5.22); RDW-SD 40.4 fL; WBC 7.18 10^3/uL (4.4-10.8)
[2022-01-21 11:12] LABS: Hemoglobin A1C 7.7 % (<5.7)
== END 2022-01-21 03:25 | disposition home or self-care (01) ==
LOC: LBO 03:24
PROVIDERS: PCP Family Medicine; Visit Provider Family Medicine
DX: R53.83 Other fatigue (principal); R73.9 Hyperglycemia, unspecified
CPT/HCPCS: 36415; 85027; 83036

== ENCOUNTER 2022-05-18 02:15 | Outpatient (CLI) | payer MEDICARE, SELFPAY | END 2022-05-18 02:16 | disposition home or self-care (01) | LOC: LBO 02:15 | PROVIDERS: PCP Family Medicine; Visit Provider Family Medicine | DX: R73.9 Hyperglycemia, unspecified (principal) | CPT/HCPCS: 36415; 83036 ==

== ENCOUNTER 2022-09-13 04:14 | Outpatient (CLI) | payer MEDICARE, SELFPAY ==
[2022-09-13 13:21] LABS: Hemoglobin A1C 6.9 % (<5.7)
== END 2022-09-13 04:15 | disposition home or self-care (01) ==
LOC: LBO 04:14
PROVIDERS: PCP Family Medicine; Visit Provider Family Medicine
DX: R73.9 Hyperglycemia, unspecified (principal)
CPT/HCPCS: 36415; 83036

== ENCOUNTER 2023-01-03 02:59 | Outpatient (CLI) | payer MEDICARE, SELFPAY ==
[2023-01-03 11:53] LABS: Hemoglobin A1C 7.3 % (<5.7)
== END 2023-01-03 03:00 | disposition home or self-care (01) ==
PROVIDERS: PCP Family Medicine; Visit Provider Family Medicine
DX: E11.65 Type 2 diabetes mellitus with hyperglycemia (principal)
CPT/HCPCS: 36415; 83036

== ENCOUNTER 2023-04-15 02:46 | Outpatient (CLI) | payer MEDICARE, SELFPAY ==
[2023-04-15 13:48] LABS: CREATININE 0.8 mg/dL (0.55-1.02); Estimated GFR 75.84 (mL/min/1.73m2); Potassium 4.1 mmol/L (3.5-5.1)
[2023-04-15 13:50] LABS: Hemoglobin A1C 7.1 % (<5.7)
== END 2023-04-15 02:47 | disposition home or self-care (01) ==
LOC: LBO 02:46
PROVIDERS: PCP Family Medicine; Visit Provider Family Medicine
DX: E11.51 Type 2 diabetes mellitus with diabetic peripheral angiopathy without gangrene (principal); I70.209 Unspecified atherosclerosis of native arteries of extremities, unspecified extremity; I10 Essential (primary) hypertension
CPT/HCPCS: 36415; 82565; 83036; 84132

== ENCOUNTER 2023-10-04 02:17 | Outpatient (CLI) | payer MEDICARE, SELFPAY ==
[2023-10-04 13:20] LABS: Hemoglobin A1C 6.9 % (<5.7)
== END 2023-10-04 02:18 | disposition home or self-care (01) ==
LOC: LOS 02:17
PROVIDERS: PCP Family Medicine; Visit Provider Family Medicine
DX: E11.51 Type 2 diabetes mellitus with diabetic peripheral angiopathy without gangrene (principal); I70.209 Unspecified atherosclerosis of native arteries of extremities, unspecified extremity
CPT/HCPCS: 36415; 83036

== ENCOUNTER 2024-04-09 06:02 | Outpatient (CLI) | payer MEDICARE, SELFPAY ==
[2024-04-09 12:33] LABS: CREATININE 0.9 mg/dL (0.55-1.02); Estimated GFR 65.44 (mL/min/1.73m2); Potassium 4.1 mmol/L (3.5-5.1)
[2024-04-09 12:52] LABS: Hemoglobin A1C 7.2 % (<5.7)
== END 2024-04-09 06:03 | disposition home or self-care (01) ==
LOC: LOS 06:02
PROVIDERS: PCP Family Medicine; Visit Provider Family Medicine
DX: E11.9 Type 2 diabetes mellitus without complications (principal); I10 Essential (primary) hypertension
CPT/HCPCS: 36415; 82565; 83036; 84132

== ENCOUNTER → 2024-07-11 14:53 | Outpatient (BNVA) | payer MEDICARE, SELFPAY | PROVIDERS: PCP Family Medicine; Referring Provider Family Medicine; Visit Provider Nurse Practitioner Adult Health | DX: G56.02 Carpal tunnel syndrome, left upper limb (principal); G56.22 Lesion of ulnar nerve, left upper limb | CPT/HCPCS: 95909; 99214 ==

== ENCOUNTER → 2024-07-16 10:06 | Outpatient (BNVA) | payer MEDICARE, SELFPAY | PROVIDERS: PCP Family Medicine; Referring Provider Family Medicine; Visit Provider Student in an Organized Health Care Education/Training Program | DX: G56.02 Carpal tunnel syndrome, left upper limb (principal); G56.22 Lesion of ulnar nerve, left upper limb | CPT/HCPCS: 99213 ==

== ENCOUNTER 2024-07-31 11:23 | Day surgery (SDC) | payer MEDICARE, SELFPAY ==
[2024-07-31 11:57] VITALS: BP 135/59; PULSE 87; RESP 20; TEMP 36.2; O2SAT 99
[2024-07-31] MEDS: Lactated Ringers 1,000 ML 80 ML IV (12:22)
--- NOTE | 2024-07-31 12:33 | W.ANESPRE ---
General Info Date of Service Date Performed: 07/31/24 Height: 5 ft 4 in Weight: 67.9 kg Body Mass Index (BMI): 25.7 Surgical Procedure: Operation Date: 07/31/24 14:10 Proposed Procedure Side Surgeon p Wrist ECTR Left Julián Coker MD Meds Allergies and Home Medications Allergies Allergy/AdvReac Type Severity Reaction Status Date / Time Tetanus Vaccines and Toxoid Allergy Severe RED Verified 07/31/24 12:02 SWOLLEN FINGERS indomethacin AdvReac Severe INTOLERANT Verified 07/31/24 12:02 Penicillins AdvReac Intermediate Skin Rash Verified 07/31/24 12:02 amlodipine AdvReac Mild Dizziness/L Verified 07/31/24 12:02 ightheade atorvastatin AdvReac Unknown MYALGIAS Verified 07/31/24 12:02 Home Medication ?Medication ?Instructions ?Recorded lancets 33 gauge (OneTouch Delica #300 ea 04/11/13 Lancets) acetaminophen 500 mg tablet (Mapap 500 mg PO bid prn 03/26/17 Extra Strength) blood sugar diagnostic #200 strips 10/19/23 metformin 500 mg tablet 500 mg PO BID #180 tab-caps 10/19/23 pen needle, diabetic 32 gauge x #200 ea 04/24/24 (BD Ultra-Fine Silvia Pen Needle) benazepril 20 1.5 tab PO DAILY #135 tabs 05/19/24 mg-hydrochlorothiazide 12.5 mg tablet amlodipine 5 mg tablet 5 mg PO DAILY #90 tabs 06/05/24 insulin glargine 100 unit/mL (3 10 unit (0.1 mL) subcut HS #12 mL 06/20/24 mL) subcutaneous pen (Lantus Solostar U-100 Insulin) insulin lispro 100 unit/mL 10 unit (0.1 mL) subcut QACDINNER 06/20/24 subcutaneous pen (Humalog KwikPen #15 mL (U-100) Insulin) Current Visit Medications: Current Medications Generic Name Dose Route Start Last Admin Trade Name Freq PRN Reason Stop Dose Admin Ringer's Solution 1,000 mls @ 80 mls/hr 07/31/24 06:00 07/31/24 12:22 IV 08/29/24 23:59 80 mls/hr INFUSION MARIANA Administration Cefazolin Sodium/Dextrose 2 gm in 50 mls @ 100 mls/hr 10/01/24 06:00 Ancef Duplex IVPB 08/29/24 23:59 PREOP MARIANA IV Miscellaneous Supplies 1 each 07/31/24 06:00 Iv Access IV 08/29/24 23:59 DIRECTED MARIANA Sodium Chloride 0 ml 07/31/24 06:00 Normal Saline Flush 10 Ml Syr IV 08/29/24 23:59 PRN PRN Sodium Chloride 0 ml 07/31/24 06:00 Normal Saline 10 Ml Vial IJ 08/29/24 23:59 DIRECTED PRN Sterile Water 0 ml 07/31/24 06:00 Water,Injection,Sterile 10 Ml Vial IJ 08/29/24 23:59 DIRECTED PRN PFSH Active Problems Active Problems: Problem Status Onset Code Ulnar neuropathy of left upper extremity Acute G56.22 Hip pain, right Acute M25.551 Carpal tunnel syndrome on left Acute G56.02 Preventative health care Acute Z00.00 Preventative health care Acute Z00.00 Bilateral leg weakness Acute R29.898 Right foot drop Acute M21.371 Spasticity Acute R25.2 Knee pain, right anterior Acute M25.561 Hypomagnesemia Acute E83.42 Insomnia Acute G47.00 Spondylolisthesis of lumbar region Acute M43.16 Lumbar stenosis Acute M48.061 Lumbar radiculopathy Acute M54.16 Diabetic neuropathy Acute E11.40 Cervical stenosis of spine Acute M48.02 Degenerative scoliosis in adult patient Acute M41.50 Arthritis of left hip Acute M16.12 Diabetes mellitus Chronic 09/18/12 E11.9 Glaucoma Chronic H40.9 Hyperlipidemia Chronic 09/18/12 E78.5 S/P laminectomy Chronic 16 Z98.890 Hypertension Chronic I10 Leg pain Acute M79.606 Right leg weakness Chronic R29.898 History of bilateral ligation of fallopian tubes Acute Z98.51 History of cataract removal with insertion of prosthetic lens Acute Z98.49, Z96.1 Plantar fasciitis Acute M72.2 Status post breast biopsy Acute Z98.890 Status post carpal tunnel release Acute Z98.890 Ocular migraine Acute 03/10/18 G43.109 Essential hypertension Acute 10/12/13 I10 Dental caries, unspecified Acute K02.9 Contracture of joint Acute M24.50 Cholelithiasis without obstruction Acute K80.20 Cataract Acute H26.9 Neck pain Acute M54.2 Medical History Medical History Comments:: Pt. states when she had neck [place] [facility] they gave me the cocktail, they kept tell me i needed to breathe because I wasn't breathing like I should Surgical History Surgical History Biopsy of breast RIGHT Extraction of cataract 07/31/15; RIGHT EYE; DR. RIOS; 08/21/15 LEFT EYE; DR. RIOS Ligation of fallopian tube (~1975) Open Carpal Tunnel release 2005 Status post total hip replacement, left (~01/10/20) [facility] Tobacco Smoking/Tobacco Use Status: Never Alcohol Alcohol Intake: never Substance Use Substance use: Never Substance use type: does not use Vital Signs and Lab Results Vital Signs Most Recent Vital Signs in EMR: Most Recent Vital Signs Temp Pulse Resp BP Pulse Ox 36.2 C L 87 20 135/59 L 99 07/31/24 11:57 07/31/24 11:57 07/31/24 11:57 07/31/24 11:57 07/31/24 11:57 Point of Care Results Point of Care Results: Finger Stick Blood Glucose 146 07/31/24 12:15 Lab Results Blood Type / Crossmatch: No Data to Display Complete Blood Count: No Data to Display Complete Metabolic Panel: No Data to Display Liver Function Panel: No Data to Display Coagulation Panel: No Data to Display Cardiac Panel: No Data to Display Arterial Blood Gas: No Data to Display Venous Blood Gas: No Data to Display Pancreas Panel: No Data to Display Thyroid Panel: No Data to Display Infectious Disease: No Data to Display Blood Cultures: No Data to Display Toxicology Panel: No Data to Display Anesthesia Assessment and Plan Anesthesia History Personal History: PONV Family History: No Family History of Anesthesia Complications Exercise Tolerance Exercise Tolerance: Metabolic Equivalents>4 Pertinent Negatives Pertinent Negatives: No Major Cardiovascular Symptoms or Complaints and No Major Pulmonary Symptoms or Complaints Cardiac & Pulmonary Exam Cardiac Exam: Normal S1/S2 Heart Sounds Pulmonary Exam: Clear Bilateral Breath Sounds Implantable Cardiac Device Does patient have a Pacemaker or an ICD?: No Airway Exam Known Difficult Airway: No Mallampati Class: 2 Mouth Opening: Normal (> 3cm) Thyromental Distance: Greater than 3 cm Neck Range of Motion: Full ROM Neck Circumference: Normal Teeth Condition: Generalized Poor Dentition ASA Classification ASA Score: ASA 3 Emergency Case?: No NPO Status NPO Status: NPO Clears >2 hours, Solids >8 hours Anesthesia Plan Resuscitation Status: Full Code Anesthesia Technique: MAC Anesthesia Airway Planned: Natural Airway Monitors Used: Standard Monitors Preoperative Comments:: Patient requests to attempt procedure with local anesthesia with Dr. Coker and will request anesthesia services if unable to tolerate procedure.
[2024-07-31 12:36] VITALS: BMI 25.7
--- NOTE | 2024-07-31 12:50 | W.PM.DSUDISC ---
Date of service: 07/31/24 Time of Service: 12:52 Discharge Plan Disposition Patient Disposition: Home Condition: Good Discharge Details Reason For Visit: Left carpal tunnel syndrome Attending Provider: Julián Coker Primary Care Provider: Juan Perry Home Meds and New Rx's Prescriptions: New hydrocodone-acetaminophen 5-325 mg tablet 1 tab PO Q6H PRN (Reason: severe pain) Qty: 6 0RF Rx Instructions: Take one tablet up to every 6 hours as needed for severe postoperative pain ibuprofen 600 mg tablet 600 mg PO TID PRN (Reason: pain) Qty: 60 0RF Continued (DME) pen needle, diabetic [BD Ultra-Fine Silvia Pen Needle] 32 gauge x 5/32 needle 1 ea Miscellaneous DAILY Qty: 200 4RF Rx Instructions: inject twice/day amlodipine 5 mg tablet 5 mg PO DAILY Qty: 90 3RF (DME) blood sugar diagnostic Strip 1 ea Miscellaneous BID Qty: 200 4RF Rx Instructions: test twice/day metformin 500 mg tablet 500 mg PO BID Qty: 180 4RF Rx Instructions: (DME) lancets [OneTouch Delica Lancets] 1 EACH misc 1 ea Intradermal DIRECTED Qty: 300 Rx Instructions: DX:250. TESTS BID-TID benazepril-hydrochlorothiazide 20-12.5 mg tablet 1.5 tab PO DAILY Qty: 135 3RF insulin glargine [Lantus Solostar U-100 Insulin] 100 unit/mL (3 mL) insulin pen 10 unit subcut HS Qty: 12 3RF Rx Instructions: DX. E11.9 insulin lispro [Humalog KwikPen Insulin] 100 unit/mL insulin pen 10 unit subcut QACDINNER MDD 15 units Qty: 15 3RF Rx Instructions: increase by 1 unit every 3-4 days until post supper sugar is around 170 acetaminophen [Mapap Extra Strength] 500 MG tablet 500 mg PO bid prn Discharge Instructions Stand Alone Forms: John Paul Cazares Tunnel Release Equipment/Supplies: Brace Activity:: Elevate Remove Dressings/Wound Care:: 48 hours Shower/Bathe:: 48 hours Diet:: As Tolerated Discharge Orders Discharge Orders: Discharge Order (Routine); Ordered 07/31/24 Ordered By: Rosalie Robbins
[2024-07-31] MEDS: ceFAZolin 2 GM/50 ML BAG IVPB (12:53)
[2024-07-31] MEDS: Lidocaine 1% Multi-Dose W/EPI 1/100,000 50 ML VIAL (13:05)
[2024-07-31] MEDS: Sodium Bicarbonate 50 MEQ/50 ML VIAL (13:05)
[2024-07-31 13:16] VITALS: BP 138/65; PULSE 94; RESP 18; TEMP 36.6; O2SAT 100
--- NOTE | 2024-07-31 14:24 | W.PM.OP ---
Date of service: 07/31/24 Time of Service: 12:40 Operative Note Operative Note DATE OF PROCEDURE: 07/31/24 PRE-OP DIAGNOSIS: Left carpal tunnel syndrome POST-OP DIAGNOSIS: same PROCEDURE: Left Endoscopic Carpal Tunnel Release SURGEON: Julián Coker ANESTHESIA TYPE: Local By Surgeon Refer to Anesthesia Record ESTIMATED BLOOD LOSS: 0 PATHOLOGY: none sent TOURNIQUET TIME: 6 COMPLICATIONS: None Patient was transported to: same day Patient's condition: stable Indications: I have seen Ana in clinic for symptoms of carpal tunnel syndrome. The numbness, tingling, and pain limited function. Clinical exam findings with nerve conduction tests confirmed the diagnosis of carpal tunnel syndrome. Nonoperative measures such as bracing, time, activity modifications had been tried but disability and pain persisted. I discussed carpal tunnel release with the patient. I reviewed the risks of the procedure to include, but not limited to, bleeding, infection, pain, stiffness, incomplete release, damage to nerves or vessels, persistent numbness, recurrence. Despite these risks, the patient elected to proceed. Findings: There was tightened carpal tunnel. This was dilated and released successfully with the endoscopic with increased space within the tunnel. The antebrachial fascia was released proximally freeing the median nerve at the wrist. Procedure Description: Ana was greeted in the preoperative holding area where the correct side was identified and marked. The consent was reviewed with the patient and signed. The history and physical was updated. All questions were answered. She was taken back to the operating room. The patient was placed into the supine position on the operating room table with the left arm on an arm board. A nonsterile tourniquet was placed high onto the arm. All bony prominences were well padded. Prophylactic antibiotics in the form of Cefazolin were administered. The left arm was then prepped with Chloraprep and draped in a standard fashion with stockinette and extremity drape. A timeout to confirm correct identity, side and site, procedure, allergies, anesthesia, and medical concerns was performed. The surgical site was marked in the volar wrist creases in line with the radial border of the fourth ray. This area was anesthetized with approximately 6cc of 1% Lidocaine. The limb was then exsanguinated with an Esmarch. The skin was incised with a 15 blade, approximately 1cm. The skin only was cut and the deeper tissue was dissected bluntly with a tenotomy scissor, avoiding passing nerve and venous structures. The fascia was penetrated and opened bluntly. A two-prong skin hook was placed under this proximal fascial edge. A series of hamate finders were used to identify and dilate the carpal tunnel. Synovial elevator was used to free synovial attachments to the underside of the transverse carpal ligament. My thumb was kept in the palm to rylie the distal extent of the carpal tunnel and correctly position the hand. The Microaire endoscope was inserted without difficulty and without resistance. Excellent visualization showed horizontally running fibers of the transverse carpal ligament (TCL). The distal extent of the TCL was visualized and the end of the scope palpated with the thumb. The blade was elevated and withdrawn from distal to proximal. The TCL was split into two flaps. The endoscope was reinserted to confirm complete release and any remnant ligament was incised. The scope was withdrawn and the proximal aspect of the carpal tunnel was grossly inspected and appeared release with the median nerve visible. The antebrachial fascia at the level of the wrist was then freed from the overlying skin and then the underlying median nerve with blunt dissection. This was transected longitudinally for about 3cm proximal to the wrist incision. The wound was then irrigated with easy flow of irrigant distally and proximally. The incision was closed with a single 4-0 Nylon suture. The wound was dressed with Xeroform, Gauze, Kerlix and Norman. The tourniquet was deflated with the initial dressing and held with some pressure. Blood flow returned easily to all digits with capillary refill less than 2 seconds. The patient tolerated the procedure well and was returned to the Same Day Surgery area in a stable condition suffering no known complication.
== END 2024-07-31 13:48 | disposition home or self-care (01) ==
PROVIDERS: PCP Family Medicine; Visit Provider Student in an Organized Health Care Education/Training Program
PROC: 01N54ZZ Release Median Nerve, Percutaneous Endoscopic Approach (ICD-10-PCS; CPT 29848; principal; 2024-07-31 14:00)
DX: G56.02 Carpal tunnel syndrome, left upper limb (principal)
CPT/HCPCS: 29848; J0690; J2004

== ENCOUNTER → 2024-08-10 09:45 | Outpatient (BNVA) | payer MEDICARE, SELFPAY | PROVIDERS: PCP Family Medicine; Referring Provider Family Medicine; Visit Provider Physician Assistant | DX: G56.02 Carpal tunnel syndrome, left upper limb (principal) | CPT/HCPCS: 99024 ==

== ENCOUNTER 2025-10-08 01:33 | Outpatient (CLI) | payer MEDICARE, SELFPAY ==
[2025-10-08 14:41] LABS: Hemoglobin A1C 6.4 % (<5.7)
[2025-10-08 15:09] LABS: Potassium 4.5 mmol/L (3.5-5.1)
== END 2025-10-08 01:34 | disposition home or self-care (01) ==
LOC: LOS 01:33
PROVIDERS: PCP Family Medicine; Visit Provider Family Medicine
DX: R73.9 Hyperglycemia, unspecified (principal); I10 Essential (primary) hypertension
CPT/HCPCS: 36415; 82565; 83036; 84132